=== PATIENT | female | born 1990 | race Caucasian/White ===

== ENCOUNTER 2019-06-24 17:21 | Emergency (ER) | payer SELFPAY ==
[2019-06-24] MEDS ORDERED: Lactated Ringers 1000 ML Bag* 1,000 ML IV ONE (19:47)
[2019-06-24] MEDS ORDERED: Famotidine IV* 10 MG/ML 2 ML (20 mg) IV SLOW PU ONE (19:47)
[2019-06-24] MEDS ORDERED: Ondansetron INJ* 2 MG/ML VIAL IV ONE (19:47)
--- NOTE | 2019-06-24 19:59 | ED ---
GI/ HPI - HPI Summary HPI Summary: Patient is a 29 y/o F who is 16 weeks , A3, who presents to [facility] via EMS with complaints of left-sided abdominal pain and N/V. Patient is on Subutex and reports that her last drug usage was 05/06/19. She states that last night, 06/23/19, patient had onset of bilateral pedal edema (patient notes Hx of LLE neuropathy). Patient states that she elevated her feet last night. Some time afterwards, she had onset of dizziness and then N/V. This morning, 06/24/19 , patient had hot flashes, abdominal pain, and N/V. Patient states that she has been feeling "crummy" throughout the entire day. She reports last episode of emesis was around 45 minutes ago. Patient denies vaginal discharge, bleeding, and dysuria but does note some decreased frequency of urination. Home medications and allergies are reviewed. In room, pulse 96, 100 o2, BP 120/64 noted. Patient was previously being followed by [facility]. She has recently moved to [place] and will follow with OBGYN at [facility]. Patient has been taking prenatals. Boyfriend is present in the room. - History of Current Complaint Chief Complaint: EDAbdPain Time Seen by Provider: 06/24/19 19:45 Stated Complaint: 16 WEEKS - FLU SYMPTOMS PER EMS Hx Obtained From: Patient Onset/Duration: Started Hours Ago, Still Present Timing: Lasting Hours Severity: Severe Current Severity: Severe Pain Intensity: 8 Location of Pain: Other - left abdomen Associated Signs and Symptoms: Positive: Nausea, Vomiting, Abdominal Pain, UTI Symptoms - decreased frequency of urination, Other: - positive - hot flashes, feeling "crummy"; negative - vaginal bleeding. Negative: Discharge, Dysuria - Allergy/Home Medications Allergies/Adverse Reactions: Allergies Allergy/AdvReac Type Severity Reaction Status Date / Time codeine Allergy Unknown Verified 06/24/19 18:06 Reaction Details vancomycin Allergy Unknown Verified 06/24/19 18:06 Reaction Details PMH/Surg Hx/FS Hx/Imm Hx Sensory History: Denies: Hx Legally Blind, Hx Deafness Opthamlomology History: Denies: Hx Legally Blind EENT History: Denies: Hx Deafness Psychiatric History: Reports: Hx Substance Abuse Infectious Disease History: No Infectious Disease History: Denies: Traveled Outside the [place] in Last 30 Days - Family History Known Family History: Negative: Seizure Disorder - Social History Alcohol Use: None Substance Use Type: Reports: None Smoking Status (MU): Former Smoker Review of Systems Constitutional: Other - positive - hot flashes, feeling "crummy" Positive: Abdominal Pain, Vomiting, Nausea Genitourinary: Other - negative - vaginal bleeding Positive: frequency - decreased frequency of urination . Negative: dysuria, discharge - vaginal Positive: Edema - feet Neurological: Other - positive - dizziness All Other Systems Reviewed And Are Negative: Yes Physical Exam - Summary Physical Exam Summary: Constitutional: Well-developed, Well-nourished, Alert. (-) Distressed Skin: Warm, Dry HENT: Normocephalic; Atraumatic Eyes: Conjunctiva normal Neck: Musculoskeletal ROM normal neck. (-) JVD, (-) Stridor, (-) Tracheal deviation Cardio: Rhythm regular, rate normal, Heart sounds normal; Intact distal pulses; The pedal pulses are 2+ and symmetric. Radial pulses are 2+ and symmetric. Pulmonary/Chest wall: Effort normal. (-) Respiratory distress, (-) Wheezes, (-) Rales Abd: Fundus is below the umbilicus. Soft, (-) tenderness, (-) Distension, (-) Guarding, (-) Rebound Musculoskeletal: (-) Edema Neuro: Alert, Oriented x3 Psych: Mood and affect Normal Triage Information Reviewed: Yes Vital Signs On Initial Exam: Initial Vitals Temp Pulse Resp BP Pulse Ox 98.4 F 69 18 105/67 100 06/24/19 17:22 06/24/19 17:22 06/24/19 17:22 06/24/19 17:22 06/24/19 17:22 Vital Signs Reviewed: Yes Procedures - Sedation Patient Received Moderate/Deep Sedation with Procedure: No Diagnostics - Vital Signs Vital Signs Temp Pulse Resp BP Pulse Ox 06/24/19 17:22 98.4 F 69 18 105/67 100 - Laboratory Result Diagrams: 06/24/19 19:58 06/24/19 19:58 Lab Statement: Any lab studies that have been ordered have been reviewed, and results considered in the medical decision making process. Re-Evaluation - Re-Evaluation First Eval Re-Evaluation Time: 22:23 Change: Improved Comment: UA was clean, labs were not concerning, patient is tolerating PO and no longer vomiting. heart rate was 150. Patient was discharged to home. GIGU Course/Dx - Course Course Of Treatment: Patient is a 29 y/o F who is 16 weeks , A3, who presents to [facility] via EMS with complaints of left-sided abdominal pain and N /V. Patient is on Subutex and reports that her last drug usage was 05/06/19. Last night, patient had onset of dizziness and then N/V. This morning, 06/24/19 , patient had hot flashes, abdominal pain, and N/V. Patient denies vaginal discharge, bleeding, and dysuria but does note some decreased frequency of urination. On physical exam, it is noted that the fundus is below the umbilicus. Abdomen is soft and non-tender. During ED course, patient received Zofran 4 mg IV, Pepcid 20 mg IV, and Lactated Ringers, 1 L. UA was clean, labs were not concerning, patient is tolerating PO and no longer vomiting. heart rate was 150. Patient was discharged to home. - Diagnoses Provider Diagnoses: Hyperemesis gravidarum Discharge ED - Sign-Out/Discharge Documenting (check all that apply): Patient Departure - discharge - Discharge Plan Condition: Improved Disposition: HOME Patient Education Materials: Hyperemesis Gravidarum (ED) Referrals: No Primary Care Phys,NOPCP [Primary Care Provider] - Additional Instructions: follow with your OBGYN at [address] [place] [address], continue your PNVs and keep hydrated. - Billing Disposition and Condition Condition: IMPROVED Disposition: Home - Attestation Statements Document Initiated by Nikole: Yes Documenting Scribe: PRISCILA DAMON Provider For Whom Nikole is Documenting (Include Credential): KISHAN JACKSON MD Scribe Attestation: I, PRISCILA DAMON, sooibed for KISHAN JACKSON MD on 06/25/19 at 0717. Scribe Documentation Reviewed: Yes Provider Attestation: The documentation as recorded by the PRISCILA faulkner accurately reflects the service I personally performed and the decisions made by me, KISHAN JACKSON MD Status of Scribe Document: Viewed
[2019-06-24 20:04] LABS: ABS Eosinophils 0.1 10^3/ul (0-0.6); ABS Lymphocytes 1.5 10^3/ul (1.0-4.8); ABS Monocytes 0.4 10^3/ul (0-0.8); ABS Neutrophils 3.3 10^3/ul (1.5-7.7); Eosinophil % 2.4 %; Hematocrit 31 % (35-47); Hemoglobin 10.4 g/dL (12.0-16.0); Lymphocyte % 27.5 %; Mean Corpuscular HGB Conc 33 g/dL (31-36); Mean Corpuscular Hemoglobin 26 pg (27-31); Mean Corpuscular Volume 78 fL (80-97); Platelet Count 211 10^3/uL (150-450); Red Blood Count 4.01 10^6 /uL (3.70-4.87); Red Cell Distribution Width 21 % (10-15); White Blood Count 5.3 10^3/uL (3.5-10.8)
[2019-06-24 20:38] LABS: ALT 23 U/L (7-52); AST 26 U/L (13-39); Albumin 3.4 g/dL (3.2-5.2); Albumin/Globulin Ratio 1.1 (1-3); Alkaline Phosphatase 37 U/L (34-104); Anion Gap 6 mmol/L (2-11); BUN/Creatinine Ratio 8.1 (8-20); Blood Urea Nitrogen 5 mg/dL (6-24); CO2 Carbon Dioxide 27 mmol/L (22-32); Calcium 8.7 mg/dL (8.6-10.3); Chloride 105 mmol/L (101-111); EGFR African American 137.7 (>60); EGFR Non-African American 113.8 (>60); Globulin 3.1 g/dL (2-4); Glucose 102 mg/dL (70-100); Magnesium 1.7 mg/dL (1.9-2.7); Potassium 3.8 mmol/L (3.5-5.0); Sodium 138 mmol/L (135-145); Total Protein 6.5 g/dL (6.4-8.9)
[2019-06-24 22:07] LABS: Urine Appearance Clear; Urine Bilirubin Negative (Negative); Urine Blood Negative (Negative); Urine Color Yellow; Urine Glucose Negative (Negative); Urine Ketones Negative (Negative); Urine Nitrite Negative (Negative); Urine Protein Negative (Negative); Urine Specific Gravity 1.015 (1.010-1.030); Urine Urobilinogen Negative (Negative)
[2019-06-24 23:09] VITALS: BP 124/67
== END 2019-06-24 22:37 | disposition home or self-care (01) ==
LOC: ED 17:21
DX: O21.0 Mild hyperemesis gravidarum (principal); Z3A.16 16 weeks gestation of pregnancy; Z87.891 Personal history of nicotine dependence; Z88.1 Allergy status to other antibiotic agents; Z88.5 Allergy status to narcotic agent
CPT/HCPCS: 36415; 80048; 80076; 81003; 83690; 83735; 85025; 96374; 96375; 99282; J2405